=== PATIENT | female | born 2000 | race Caucasian/White ===

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

== ENCOUNTER → 2018-02-21 | Day surgery (SDC) | payer OTHER ==
[2018-01-30 09:21] VITALS: BMI 26.0
[2018-02-05 16:27] LABS: BASO % 0.4 %; BASO ABS # 0.03 K/uL (0-0.2); EOS % 0.2 %; EOS ABS # 0.02 K/uL (0-0.5); HEMATOCRIT 41.3 % (37-47); HEMOGLOBIN 13.6 g/dL (12.0-16.0); IG# 0.02 K/uL (0.00-0.02); LYMPH % 36.3 %; LYMPH ABS # 2.91 K/uL (1.2-3.4); MEAN CELL VOLUME 85.9 fL (80-100); MEAN CORPUSCULAR HEMOGLOBIN 28.3 pg (25-34); MEAN CORPUSCULAR HGB CONC 32.9 g/dl (32-36); MEAN PLATELET VOLUME 11.1 fL (7.4-10.4); MONO % 7.7 %; MONO ABS # 0.62 K/uL (0.11-0.59); NEUT % 55.2 %; NEUT ABS # 4.42 K/uL (1.4-6.5); PLATELET COUNT 242 K/uL (130-400); RED CELL DISTRIBUTION WIDTH CV 13.2 % (11.5-14.5); RED CELL DISTRIBUTION WIDTH SD 42.1 fL (36.4-46.3); WHITE BLOOD COUNT 8.02 K/uL (4.8-10.8)
[~2018-02-21] VITALS: Ht 154.9 cm; Wt 63.6 kg
[~2018-02-21] MED LIST: ACETAMINOPHEN 1000 MG/100 ML IV IV ONE; ATROPINE SULFATE 0.1 MG/ML 5ML SYR IV PRN; BCPILLS PO; CEFAZOLIN 2000MG IV PUSH 15 ML IV SCH; DEXAMETHASONE SOD INJ 4 MG/ML VIAL ONE; EpHEDrine SULFATE INJ 50 MG/ML AMP IV PRN; FENTANYL CITRATE INJ 50 MCG/1 ML 2 ML VIAL IV PRN; FENTANYL CITRATE INJ 50 MCG/1 ML 2 ML VIAL ONE; FLUMAZENIL 0.1 MG/1 ML 10 ML VIAL IV PRN; GLYCOPYRROLATE INJ 0.2 MG/ML VIAL ONE; IBUPROFEN 600 MG TAB PO PRN; KETOROLAC TROMETHAMINE 30 MG/ML VIAL IV. PRN; KETOROLAC TROMETHAMINE 30 MG/ML VIAL ONE; LACTATED RINGER'S 1000ML 1,000 ML IV SCH; LIDOCAINE HCL 2% 2 ML VIAL (20MG/ML) ONE; MIDAZOLAM HCL 1 MG/ML 2ML VIAL ONE; NALOXONE HCL 0.4 MG/1 ML VIAL/CARP IV PRN; NEOSTIGMINE METHYLSULFATE 5 MG/5 ML SYR ONE; ONDANSETRON INJ 2 MG/ML 2 ML VIAL IV PRN; ONDANSETRON INJ 2 MG/ML 2 ML VIAL ONE; OXYCODONE/ACETAMINOPHEN 5-325 TAB PO PRN; PROMETHAZINE HCL INJ 12.5 MG in SODIUM CHLORIDE 0.9% 50ML 50 ML IV PRN; PROMETHAZINE HCL INJ 25 MG in SODIUM CHLORIDE 0.9% 50ML 50 ML IV PRN; PROPOFOL IV EMULSION 10 MG/ML 20 ML VIAL IV ONE; ROCURONIUM BROMIDE 10 MG/ML 5 ML VIAL IV ONE; SODIUM CHLORIDE 0.9% 1000ML 1,000 ML IV SCH
[2018-02-21 07:17] VITALS: BP 122/63; PULSE 69; TEMP 37.1; O2SAT 97; Ht 154.9 cm; Wt 63.6 kg
--- NOTE | 2018-02-21 09:32 | History & Physical Bridge Note ---
H&P Re-Evaluation Bridge Note: I have examined the patient, reviewed the History & Physical and in the interval since the performance of the History & Physical I have noted the following changes of clinical significance: No changes noted
--- NOTE | 2018-02-21 09:34 | Discharge Instructions ---
Discharge Instructions Date of Service Feb 21, 2018. Visit Reason for Visit: Left Ovarian Cyst Discharge Discharge Diagnosis / Problem: Left salpingo-oophorectomy, laparoscopic Discharge Goals Goal(s): Specific goals Activity Recommendations Activity Limitations: per Instructions/Follow-up section Lifting Limitations: gradually increase as tolerated Exercise/Sports Limitations: rest today May Resume Sexual Activity: when tolerated Shower/Bathe: no limitations Rest this weekend. May return to normal school and work activities on Saturday. Anesthesia . Post Anesthesia Instructions: If you have had General Anesthesia or IV Sedation: * Do not drive today. * Resume driving when surgeon permits. * Do not make important decisions or sign legal documents today. * Call surgeon for: 1. Temperature elevations greater than 101 degrees F. 2. Uncontrollable pain. 3. Excessive bleeding. 4. Persistent nausea and vomiting. 5. Medication intolerance (nausea, vomiting or rash). * For nausea and vomiting use only clear liquids such as: tea, soda, bouillon until nausea subsides, then gradually increase diet as tolerated. * If you have any concerns or questions, call your surgeon's office. If physician is unavailable and it is an emergency, call 911 or go to the nearest emergency room. . Instructions / Follow-Up Instructions / Follow-Up ACTIVITY RECOMMENDATIONS: * Rest the first 2-3 days. You should be back to your normal activity levels by day 3. * No heavy lifting (greater than 50lb) for 2 weeks. * No intercourse, tampons or douching for 1-2 weeks. * You may shower the next day. * Do not drive anytime that you are taking narcotic pain medicines. RETURN TO SCHOOL/WORK: * May return to school or work after 2-3 days. DIET: Nausea may occur in the immediate post-operative period. If so, take clear liquids such as tea, bouillon, apple juice until all nausea has subsided, then resume usual diet. MEDICATIONS: Resume previous medications unless instructed otherwise by your surgeon. Ibuprofen 200mg 2-3 tablets every 4-6 hours as needed -- OR -- Aleve 2 tablets every 8-12 hours as needed for post-operative discomfort Medications are over the counter. Tylenol may be used if above medications are contraindicated or not preferred. Medication should be taken with food or milk. Do not take on an empty stomach. SPECIAL CARE INSTRUCTIONS: * Check temperature twice daily for one week. report any elevation over 101 degrees. * You may experience some vagina spotting and/or bleeding. This is normal for 1 -2 weeks and should not be heavier than a normal period. If it is unusual in amount, call your physician. * Post-operative discomfort may consist of a sore throat, a "bloated" feeling and pain in the shoulders. these are normal symptoms, which usually only last for 2-3 days. * Remove band-aids tomorrow and shower. There is no need to replace band-aids unless there is drainage or discomfort. FOLLOW UP VISIT: Call your doctor's office for a post-operative 2 week visit if not already scheduled. Diet Recommendations Recommended Home Diet: no limitations Pending Studies Studies pending at discharge: no Medical Emergencies . Who to Call and When: Medical Emergencies: If at any time you feel your situation is an emergency, please call 911 immediately. . Non-Emergent Contact Non-Emergency issues call your: Primary Care Provider . . "Provider Documentation" section prepared by Gwen Talamantes. .
--- NOTE | 2018-02-21 10:38 | [facility] Post Operative Brief Note ---
Immediate Operative Summary Operative Date Feb 21, 2018. Pre-Operative Diagnosis Left ovarian cysts with mural nodules; pelvic pain Post-Operative Diagnosis Left ovarian torsion and left ovarian cysts Procedure(s) Performed Laparoscopic Left Salpingo-oophorectomy Surgeon Dr. Gwen Talamantes Topper Press Operator Automatic Surgeon(s) None Estimated Blood Loss 5 mL Findings Consistent with Post-Op Diagnosis Specimens Permanent specimens A: Left fallopian tube and ovary Drains None Anesthesia Type General Disposition Accompanied Pt To Recover: no Disposition: Recovery Room / PACU
--- NOTE | 2018-02-21 10:42 | [facility] Operative Report ---
Operative Report Operative Date Feb 21, 2018. Pre-Operative Diagnosis Left ovarian cysts with mural nodules; pelvic pain Post-Operative Diagnosis Left ovarian torsion and left ovarian cysts Procedure(s) Performed Laparoscopic Left Salpingo-oophorectomy Surgeon Dr. Gwen Talamantes Transportation Sales Consultant Surgeon(s) None Estimated Blood Loss 5 mL Specimens Permanent specimens A: Left fallopian tube and ovary Drains None Anesthesia Type General Disposition no Recovery Room / PACU Description of Procedure Cally was placed on the operating table in the dorsal lithotomy position with yellowfin stirrups prepped and draped in standard sterile fashion and a hard timeout was taken prior to proceeding. A Jay catheter was placed and a vaginal sponge stick was placed. Attention was then turned to the abdomen, where entry was made in the umbilicus in an optical manner. The entry was uncomplicated. Patient's abdomen was insufflated with CO2, and then right and left lower quadrant ports were placed under direct visualization. Patient was placed in Trendelenburg. Visualization of the pelvic organs reveals a normal uterine fundus normal right tube normal right ovary. The left tube and the left ovary which is grossly enlarged, are noted to be torsed. The left ureter was visualized and seen to be peristalsing. The left infundibulopelvic ligament was then ligated and divided. The left utero-ovarian ligament and left fallopian tube origin from the uterine cornu were both ligated and divided. Dissection across the broad ligament was used to free the tube and ovary. Once the specimen had been completely detached, a Endo Catch bag was placed through the umbilical port under direct visualization using a 5 mm camera through a side-port. The tissue was flipped up into the Endo Catch bag and then retrieved via the umbilicus. At no time did the bag break nor were spillage of contents into the abdomen an issue. Once the bag and sample had been completely removed, visualization of the pelvis and abdomen was completed one further time to ensure good hemostasis and no remaining tissue. The procedure was then brought to completion by allowing the gas to escape the abdomen and then all ports were removed, with closure of the umbilical port using UR 6 at the fascial layer, with Monocryl at the skin of all 3 incisions, and Dermabond dressing then being applied. The Jay which drained 400 cc of clear yellow urine was then removed as was the vaginal sponge stick. The patient was transferred in stable condition to the PACU. I attest to the content of the Intraoperative Record and any orders documented therein. Any exceptions are noted below.
--- NOTE | 2018-02-21 11:38 | Anesthesiology Progress Note ---
Anesthesia Post Op Note Date & Time Feb 21, 2018 at 11:38 Vital Signs Pain Intensity: 3 Vital Signs Past 12 Hours Date Time Temp Pulse Resp B/P (MAP) Pulse Ox O2 Delivery O2 Flow Rate FiO2 02/21/18 11:30 36.2 50 14 104/68 100 Nasal Cannula 2 02/21/18 11:20 52 15 112/72 100 Nasal Cannula 2 02/21/18 11:10 61 16 121/63 100 Nasal Cannula 2 02/21/18 11:00 64 16 108/66 100 Oxymask 3 02/21/18 10:52 36.3 80 16 111/57 100 Oxymask 5 02/21/18 07:17 37.1 69 18 122/63 (82) 97 Room Air Notes Mental Status: alert / awake / arousable, participated in evaluation Pt Amnestic to Procedure: Yes Nausea / Vomiting: adequately controlled Pain: adequately controlled Airway Patency, RR, SpO2: stable & adequate BP & HR: stable & adequate Hydration State: stable & adequate Anesthetic Complications: no major complications apparent
[2018-02-21 11:43] VITALS: BP 115/62; PULSE 69; TEMP 36.5; O2SAT 100
[2018-02-21 12:13] VITALS: BP 114/65; PULSE 65; TEMP 37; O2SAT 100
[2018-02-21 13:20] VITALS: BP 109/64; PULSE 80; TEMP 36.7; O2SAT 98
== END | disposition home or self-care (01) ==
LOC: C.ACU 06:51
PROVIDERS: ATTEND Obstetrics & Gynecology
DX: N83.512 Torsion of left ovary and ovarian pedicle (principal); D27.1 Benign neoplasm of left ovary